=== PATIENT | female | born 1975 ===

== ENCOUNTER 2021-02-27 12:59 | Emergency (ER) | payer OTHER ==
[~2021-02-27] VITALS: Ht 165.1 cm; Wt 72.6 kg
== END 2021-02-27 14:59 | disposition home or self-care (01) ==
LOC: ER 12:59
DX: M62.838 Other muscle spasm (principal)

== ENCOUNTER 2021-04-27 11:59 | Emergency (ER) | payer OTHER ==
[~2021-04-27] VITALS: Ht 152.4 cm; Wt 78.0 kg
[2021-04-27] MEDS ORDERED: ZYRTEC10 M3 PO (18:12)
[2021-04-27] MEDS ORDERED: FLONASE16 GM NASAL (18:14)
== END 2021-04-27 18:16 | disposition home or self-care (01) ==
LOC: ER 11:59
DX: J06.9 Acute upper respiratory infection, unspecified (principal); R51.9 Headache, unspecified; R05 Cough

== ENCOUNTER 2022-02-27 17:20 | Emergency (ER) | payer OTHER ==
[~2022-02-27] VITALS: Ht 157.5 cm; Wt 65.8 kg
[~2022-02-27 17:20] MED LIST: FLONASE16 GM NASAL; ZYRTEC10 M3 PO
[2022-02-27] MEDS ORDERED: XOPENEX0.63 MG/3 IH (21:21)
[2022-02-27] MEDS ORDERED: MOLNUPIRAVIR (200 MG PO (21:21)
[2022-02-27] MEDS ORDERED: MUCINEX DM ER1 EAC1 PO (21:21)
[2022-02-27] MEDS ORDERED: VITAMIN C500 M6 PO (21:21)
[2022-02-27] MEDS ORDERED: ACETAMINOPHEN650 M2 PO (21:21)
== END 2022-02-27 21:40 | disposition home or self-care (01) ==
LOC: ER 17:20
DX: U07.1 COVID-19 (principal); J06.9 Acute upper respiratory infection, unspecified; B34.9 Viral infection, unspecified